=== PATIENT | female | born 1985 | race Caucasian/White ===

== ENCOUNTER 2024-11-08 18:35 | Emergency (ER) | payer OTHER ==
[~2024-11-08] VITALS: Ht 154.9 cm; Wt 63.5 kg
[2024-11-08 18:41] VITALS: BP 93/58
[2024-11-08] MEDS ORDERED: KETOROLAC TROMETHAMINE 15 MG/ML SDV IV ONE (18:45)
[2024-11-08] MEDS ORDERED: IBUPROFEN600 MG PO (19:26)
[2024-11-08] MEDS ORDERED: LORTAB 5/3255 MG PO (19:26)
[2024-11-08] MEDS ORDERED: BACLOFEN10 MG PO (19:26)
[2024-11-08] MEDS ORDERED: ZOFRAN4 MG/TAB PO (19:26)
[2024-11-08 19:59] VITALS: BP 93/58
== END 2024-11-08 19:59 | disposition home or self-care (01) | DRG 563 ==
LOC: ED 18:35
DX: S42.022A Displaced fracture of shaft of left clavicle, initial encounter for closed fracture (principal); S22.42XA Multiple fractures of ribs, left side, initial encounter for closed fracture; M25.512 Pain in left shoulder; V86.69XA Passenger of other special all-terrain or other off-road motor vehicle injured in nontraffic accident, initial encounter
CPT/HCPCS: J1885